=== PATIENT | female | born 1950 | race Caucasian/White ===

== ENCOUNTER 2016-11-15 08:49 | Day surgery (SDC) | payer OTHER ==
[~2016-11-15] VITALS: Ht 160 cm; Wt 96.8 kg
[~2016-11-15 08:49] MED LIST: ASPI325T PO; DYAZ37.52 PO; LANTUSP SQ; METF-324 PO; METO100T PO; PIOG30 PO; PRIN20TA2 PO
[2016-11-15] MEDS ORDERED: SODIUM CHLOR 0.9% 1000 ML IV SCH (09:00)
[2016-11-15 09:08] VITALS: BP 180/93; PULSE 85; RESP 20; TEMP 98; O2SAT 97
[2016-11-15] MEDS ORDERED: METF1000 PO (09:15)
[2016-11-15] MEDS ORDERED: ASPI-147 PO (09:15)
[2016-11-15] MEDS ORDERED: DYAZ37.5 PO (09:15)
[2016-11-15] MEDS ORDERED: ROSU10 PO (09:15)
[2016-11-15] MEDS ORDERED: ASCO500W BUCCAL (09:15)
[2016-11-15] MEDS ORDERED: LISI-515 PO (09:15)
[2016-11-15] MEDS ORDERED: AMLO10TA2 PO (09:15)
[2016-11-15] MEDS ORDERED: VITA200013 (09:15)
[2016-11-15] MEDS ORDERED: NOVORP2 SQ (09:15)
[2016-11-15] MEDS ORDERED: LEVEMIR SQ (09:15)
[2016-11-15 09:31] LABS: AUTOMATED NEUTROPHIL # 7.4 TH/MM3 (1.8-7.7); BASOPHIL # 0.1 TH/MM3 (0-0.2); EOSINOPHIL # 0.8 TH/MM3 (0-0.4); EOSINOPHIL % 6.1 % (0.0-4.0); HEMATOCRIT 37.2 % (35.0-46.0); HEMO FLAGS DIFF FINAL; LYMPH % 28.5 % (9.0-44.0); LYMPHOCYTE # 3.6 TH/MM3 (1.0-4.8); MEAN CELL VOLUME 78.8 FL (80.0-100.0); MEAN CORPUSCULAR HEMOGLOBIN 26.7 PG (27.0-34.0); MEAN CORPUSCULAR HGB CONC 33.9 % (32.0-36.0); MONO % 5.6 % (0.0-8.0); NEUT % 58.8 % (16.0-70.0); PLATELET COUNT 323 TH/MM3 (150-450); RED BLOOD COUNT 4.71 MIL/MM3 (4.00-5.30); RED CELL DISTRIBUTION WIDTH 14.5 % (11.6-17.2); WHITE BLOOD COUNT 12.6 TH/MM3 (4.0-11.0)
[2016-11-15] MEDS ORDERED: LIDOCAINE 1%/EPINEPHrine 1:100,000 SOLN 20 ML VIAL ONE ×2 (10:37→11:08)
[2016-11-15] MEDS ORDERED: fentaNYL CITRATE 250 MCG/5 ML AMP ONE (10:42)
[2016-11-15] MEDS ORDERED: MIDAZOLAM HCL 5 MG/5 ML VIAL ONE (10:42)
[2016-11-15 11:30] VITALS: BP 145/68; PULSE 93; RESP 18; TEMP 98.5; O2SAT 96
[2016-11-15 11:45] VITALS: BP 164/64; PULSE 82; RESP 18; O2SAT 96
[2016-11-15 12:01] LABS: BONE MARROW PROCESSING COMPLETE; IRON STAIN DONE; JENNER GIEMSA STAIN DONE
[2016-11-15 12:15] VITALS: BP 121/73; PULSE 83; RESP 18; O2SAT 95
[2016-11-15 12:45] VITALS: BP_SYST 121; BP_SYST 143; BP_DIAS 73; BP_DIAS 78; PULSE 81; PULSE 83; RESP 16; RESP 18; O2SAT 95
--- NOTE | 2016-11-15 12:55 | RADRPT ---
EXAM DATE/TIME: 11/15/2016 10:58 [place] COMPARISON: No previous studies available for comparison. INDICATIONS : Thrombocytosis. SEDATION TIME: 15 minutes BIOPSY SITE: Right MEDICATION(S): 1.) 3 mg midazolam (Versed) IV 2.) 150 mcg fentanyl (Sublimaze) IV DEVICE(S): 1.) 11 gauge Bone marrow biopsy needle MEDICAL HISTORY : Hypertension. Diabetes mellitus type 2. SURGICAL HISTORY : None. ENCOUNTER: Initial ACUITY: 1 day PAIN SCORE: 0/10 LOCATION: Right A total of one core specimen(s) were obtained and sent to the laboratory for pathologic evaluation. PROCEDURE: 1. CT guided bone marrow biopsy. 2. Conscious sedation with continuous EKG and oximetry monitoring. 3. EKG and oximetry remained stable throughout the procedure. Prior to the procedure informed consent was obtained. Any appropriate prior imaging studies were rev iewed. Using automated exposure control and adjustment of the mA and/or kV according to patient size , radiation dose was kept as low as reasonably achievable to obtain optimal diagnostic quality images . DICOM format image data is available electronically for review and comparison. The site was prepped in a sterile fashion. Full sterile technique was used, including cap, mask, nely rile gloves and gown and a large sterile sheet. Hand hygiene and 2% chlorhexidine and/or betadine/al cohol prep was utilized per protocol for cutaneous antisepsis. The skin and subcutaneous tissues wer e infiltrated with local anesthetic solution. With CT guidance the previously identified target was localized. Biopsy was performed using the presc ribed needle as above. Following biopsy marrow aspiration was performed with repeat puncture. [place] te hemostasis was obtained with compression at the puncture site. Follow-up CT scan reveals no hemorrhage. Conscious sedation was performed with the prescribed dosages and duration as above in the presence of an independent trained radiology nurse to assist in the monitoring of the patient. EKG and oximetry remained stable throughout the procedure. The patient tolerated the procedure well and there were no complications. The patient was sent to Radiology Outpatient Unit in stable condition. CONCLUSION: 1. Uncomplicated CT guided bone marrow aspirate. 2. Uncomplicated CT guided bone marrow biopsy. Jose Lopez MD FACR on November 15, 2016 at 12:53 Board Certified Radiologist. This report was verified electronically.
[2016-11-15 13:15] VITALS: BP 146/68; PULSE 88; RESP 16; O2SAT 96
== END 2016-11-15 13:20 | disposition home or self-care (01) ==
LOC: HRAD 08:49 → HRIP 08:50 → HRAD 13:20
PROVIDERS: ATTEND Internal Medicine
DX: D47.3 Essential (hemorrhagic) thrombocythemia (principal); D75.89 Other specified diseases of blood and blood-forming organs; D72.1 Eosinophilia; I10 Essential (primary) hypertension; E11.9 Type 2 diabetes mellitus without complications
CPT/HCPCS: 38221; 77012; 85025; 85097; 88184; 88185; 88237; 88264; 88305; 88311; 88313; 99152; C1830; G0364; J2250; J3010; J7030; 88280